=== PATIENT | female | born 1995 | race Caucasian/White ===

== ENCOUNTER 2018-08-11 22:37 | Emergency (ER) | payer OTHER, SELFPAY ==
[2018-08-11 22:39] VITALS: BP 127/76; PULSE 108; RESP 18; TEMP 36.6; O2SAT 100; BMI 25.6
--- NOTE | 2018-08-11 23:08 | RAD_ITS ---
STUDY: X-RAY - FACIAL BONES REASON FOR STUDY: Female, 23 years old. Trauma TECHNIQUE: 6 view(s) of the facial bones. COMPARISON: None. FINDINGS: Normal bilateral frontozygomatic and zygomatic-temporal arches. Normal bilateral medial and inferior orbital barragan. Normal bilateral orbits. Normal visualized nasal bones. Normal anterior nasal spine. The remaining visualized osseous structures are normal. Normal visualized paranasal sinuses. RAD/Facial Bones min 3 Views IMPRESSION: Normal x-ray examination of the facial bones. Electronically Signed: Sebastián Boucher MD at 23:35 EDT , Service support ,
--- NOTE | 2018-08-11 23:53 | ED.VISSUMM ---
- ER Visit Summary Date of Service: 08/11/18 Chief Complaint: Fall, facial injury History of Present Illness: The patient is a 23 F who is otherwise healthy presents with facial injury after mechanical fall. Patient was in her normal state of health. She states she was at a bar tonight with some friends. She was walking and lost her balance. She tripped and fell forward. She struck her right face against the ground. She did not lose consciousness. She had some swelling of the area. She denies any change in vision. She denies any pain in her teeth are in her neck. She applied ice and presented here. Physical Examination: Exam is relatively unremarkable. Patient does have a small abrasion over the right zygomatic arch with a slight contusion no step-off. Pupils are equal round reactive. Extraocular muscles are intact. Midface is stable. There is no nasal septal hematoma. Neck is nontender. Test Results: [] Emergency Department Course and Treatment: Patient has a GCS of 15, reassuring neuro exam, no loss of consciousness. Ice was applied to her face. I did obtain plain films. There is no evidence of fracture. She has no evidence of entrapment of the orbital muscles. She has no evidence of dental injury. Patient will continue ice and anti-inflammatories. She will be discharged home. Treatment Plan: [] Disposition: Discharge Impression: 1. Right facial contusion This note was generated with [employer] dictation software. It may contain incorrect words, spelling, and punctuation that were not noted in review of the chart prior to signing ED Disposition - Plan for ED Patient: Instructions: ED Contusion Face Referrals: Care Physician,No Primary [Primary Care Provider] -
--- NOTE | 2018-08-11 23:56 | ED.DCSUM_ITS ---
- ER Visit Summary Date of Service: 08/11/18 Chief Complaint: Fall, facial injury History of Present Illness: The patient is a 23 F who is otherwise healthy presents with facial injury after mechanical fall. Patient was in her normal state of health. She states she was at a bar tonight with some friends. She was walking and lost her balance. She tripped and fell forward. She struck her right face against the ground. She did not lose consciousness. She had some swelling of the area. She denies any change in vision. She denies any pain in her teeth are in her neck. She applied ice and presented here. Physical Examination: Exam is relatively unremarkable. Patient does have a small abrasion over the right zygomatic arch with a slight contusion no step- off. Pupils are equal round reactive. Extraocular muscles are intact. Midface is stable. There is no nasal septal hematoma. Neck is nontender. Test Results: [] Emergency Department Course and Treatment: Patient has a GCS of 15, reassuring neuro exam, no loss of consciousness. Ice was applied to her face. I did obtain plain films. There is no evidence of fracture. She has no evidence of entrapment of the orbital muscles. She has no evidence of dental injury. Patient will continue ice and anti-inflammatories. She will be discharged home. Treatment Plan: [] Disposition: Discharge Impression: 1. Right facial contusion This note was generated with [employer] dictation software. It may contain incorrect words, spelling, and punctuation that were not noted in review of the chart prior to signing ED Disposition - Plan for ED Patient: Instructions: ED Contusion Face Referrals: Care Physician,No Primary [Primary Care Provider] -
[2018-08-11 23:58] VITALS: RESP 18
== END 2018-08-11 23:59 | disposition home or self-care (01) ==
LOC: ED 23:46
PROVIDERS: Emergency Provider Emergency Medicine
DX: S00.83XA Contusion of other part of head, initial encounter (principal); W01.0XXA Fall on same level from slipping, tripping and stumbling without subsequent striking against object, initial encounter; Y93.01 Activity, walking, marching and hiking
CPT/HCPCS: 70150; 99282